=== PATIENT | male | born 1945 | race Caucasian/White ===

== ENCOUNTER 2018-08-29 16:54 | Inpatient (IN) | payer OTHER, MEDICARE ==
[~2018-08-29] VITALS: Ht 177.8 cm; Wt 79.6 kg
--- NOTE | 2018-08-29 17:28 | NUR ---
PT WANTS TO WAIT FOR XRAY UNTIL HE GETS IN A ROOM BECAUSE HE HAS A BANDAGE ON AND ONLY WANTS TO TAKE IT OFF ONCE
[2018-08-29 17:54] LABS: MD NO; MONOCYTES % (AUTO) 11 % (2-9); RED CELL DISTRIBUTION WIDTH 13.9 % (9.4-14.8)
[2018-08-29 18:00] LABS: BASOPHILS # (AUTO) 0.05 x10^3/uL (0-0.1); BASOPHILS % (AUTO) 0 % (0-1); EOSINOPHILS # (AUTO) 0.35 x10^3/uL (0-0.4); EOSINOPHILS % (AUTO) 3 % (1-7); LYMPHOCYTES # (AUTO) 1.83 x10^3/uL (1-3.4); LYMPHOCYTES % (AUTO) 15 % (22-44); MEAN CORPUSCULAR HEMOGLOBIN 31.4 pg (27.5-34.5); MEAN CORPUSCULAR HGB CONC 33.1 g/dL (33.2-36.2); MEAN CORPUSCULAR VOLUME 95.1 fL (81-97); MEAN PLATELET VOLUME 6.9 fL (7.4-10.4); MONOCYTES # (AUTO) 1.33 x10^3/uL (0.2-0.8); NEUTROPHILS # (AUTO) 8.66 x10^3/uL (1.8-6.8); NEUTROPHILS % (AUTO) 71 % (42-75); PLATELET COUNT 349 x10^3/uL (130-400); RED BLOOD COUNT 4.65 x10^6/uL (4.38-5.82)
[2018-08-29 18:06] LABS: ALBUMIN 3.1 g/dL (3.4-5.0); ANION GAP 6 mmol/L (5-15); CALCIUM 9.7 mg/dL (8.5-10.1); CHLORIDE 107 mmol/L (98-107)
[2018-08-29 18:10] LABS: ALANINE AMINOTRANSFERASE 33 U/L (12-78); ALKALINE PHOSPHATASE 74 U/L (45-117); BILIRUBIN,TOTAL 0.4 mg/dL (0.2-1.0); CREATININE 1.26 mg/dL (0.7-1.3); TOTAL PROTEIN 7.6 g/dL (6.4-8.2)
--- NOTE | 2018-08-29 18:33 | NUR ---
PT TO ROOM 4 W/ C/O HAVING INFECTION TO R ANKLE THAT WAS TREATED AT [facility] W/ IV ANTX FOR 5 DAYS AND WAS DC'D W/ PO AUGMENTIN AND FLAGYL AND PT STATES HIS INFECTION IS RESISTANT TO PO ANTX HE WAS TOLD. PT STATES HE WENT HOME ON PO ANTX AND STATES INFECTION IS GETTING WORSE. PT RESTING ON [facility]. NADN. VSS. WARM BLANKET PROVIDED.
--- NOTE | 2018-08-29 18:35 | NUR ---
PT CHART REVIEWED AND PLACED FOR RECHECK.
--- NOTE | 2018-08-29 18:47 | NUR ---
PT REPORT FROM RITA VASQUEZ. THIS RN TO ASSUME CARE OF PT. PT UP FOR RECHECK. AWAITING MD RECHECK.
--- NOTE | 2018-08-29 19:06 | NUR ---
REPORT GIVEN TO JANKI HERNANDEZ RN.
[2018-08-29] MEDS ORDERED: VANCOMYCIN PER PHARMACY IV ONE (19:30)
[2018-08-29] MEDS ORDERED: PHARMACOKINETIC CONSULTATION MC ONE ×2 (19:30→21:00)
[2018-08-29] MEDS ORDERED: VANCOMYCIN 1,800 MG in SODIUM CHLORIDE 0.9% 250 ML IV ONE (19:30)
[2018-08-29] MEDS ORDERED: PIPERACILLIN/TAZO/PMX 3.375GM 50 ML IVPB ONE (19:30)
--- NOTE | 2018-08-29 19:41 | NUR ---
REPORT TO BONIFACIO VASQUEZ FOR ROOM [id number]
[2018-08-29] MEDS: HEPARIN 5,000 UNITS/ML, 1ML SQ SCH (20:30)
[2018-08-29] MEDS ORDERED: LABETALOL 5MG/ML, 20ML IVPush PRN (20:30)
[2018-08-29] MEDS ORDERED: TEMAZEPAM 15 MG CAPSULE PO PRN (20:30)
[2018-08-29] MEDS ORDERED: GABAPENTIN 300 MG CAPSULE PO PRN (20:30)
[2018-08-29] MEDS ORDERED: ONDANSETRON ODT 4 MG PO PRN (20:30)
[2018-08-29] MEDS ORDERED: VANCOMYCIN PER PHARMACY MC PRN (20:30)
[2018-08-29] MEDS ORDERED: DOCUSATE 100 MG CAPSULE PO PRN (20:30)
[2018-08-29] MEDS ORDERED: PHARMACOKINETIC MONITORING MC PRN (21:00)
[2018-08-30 01:12] VITALS: BP 112/72
[2018-08-30] MEDS: ACETAMINOPHEN 325 MG TABLET PO PRN (02:34)
[2018-08-30] MEDS: PIPERACILLIN/TAZO/PMX 3.375GM 50 ML IV SCH ×4 (02:34→23:04)
[2018-08-30] MEDS: HEPARIN 5,000 UNITS/ML, 1ML SQ SCH ×3 (04:30→20:36)
[2018-08-30 04:40] LABS: MEAN CORPUSCULAR HGB CONC 32.7 g/dL (33.2-36.2); MEAN CORPUSCULAR VOLUME 94.6 fL (81-97); MEAN PLATELET VOLUME 6.6 fL (7.4-10.4); PLATELET COUNT 325 x10^3/uL (130-400); RED BLOOD COUNT 4.38 x10^6/uL (4.38-5.82); RED CELL DISTRIBUTION WIDTH 13.9 % (9.4-14.8)
[2018-08-30 04:52] LABS: ANION GAP 9 mmol/L (5-15); CALCIUM 8.7 mg/dL (8.5-10.1); CHLORIDE 107 mmol/L (98-107)
[2018-08-30 04:53] LABS: CREATININE 1.16 mg/dL (0.7-1.3)
[2018-08-30 05:08] LABS: BASOPHILS # (AUTO) 0.07 x10^3/uL (0-0.1); BASOPHILS % (AUTO) 1 % (0-1); EOSINOPHILS % (AUTO) 4 % (1-7); LYMPHOCYTES # (AUTO) 1.56 x10^3/uL (1-3.4); LYMPHOCYTES % (AUTO) 12 % (22-44); MD SCAN; MONOCYTES # (AUTO) 1.46 x10^3/uL (0.2-0.8); MONOCYTES % (AUTO) 11 % (2-9); NEUTROPHILS % (AUTO) 73 % (42-75)
[2018-08-30 07:35] VITALS: BP 120/76
[2018-08-30 08:30] VITALS: BP 101/63
[2018-08-30 13:31] LABS: HCT (SEDRATE) 42.5 % (39.2-51.8)
[2018-08-30 16:06] VITALS: BP 114/73
[2018-08-30] MEDS ORDERED: VANCOMYCIN 1,800 MG in SODIUM CHLORIDE 0.9% 250 ML IV SCH (20:00)
[2018-08-30 20:43] VITALS: BP 124/73
[2018-08-31 02:30] VITALS: BP 130/72
[2018-08-31] MEDS: HEPARIN 5,000 UNITS/ML, 1ML SQ SCH ×3 (04:30→20:03)
[2018-08-31 04:41] LABS: BASOPHILS # (AUTO) 0.04 x10^3/uL (0-0.1); BASOPHILS % (AUTO) 0 % (0-1); EOSINOPHILS # (AUTO) 0.61 x10^3/uL (0-0.4); EOSINOPHILS % (AUTO) 6 % (1-7); LYMPHOCYTES % (AUTO) 15 % (22-44); MD NO; MEAN CORPUSCULAR HEMOGLOBIN 31.1 pg (27.5-34.5); MEAN CORPUSCULAR HGB CONC 32.8 g/dL (33.2-36.2); MEAN CORPUSCULAR VOLUME 94.7 fL (81-97); MEAN PLATELET VOLUME 6.9 fL (7.4-10.4); MONOCYTES # (AUTO) 1.03 x10^3/uL (0.2-0.8); MONOCYTES % (AUTO) 10 % (2-9); NEUTROPHILS # (AUTO) 7.61 x10^3/uL (1.8-6.8); NEUTROPHILS % (AUTO) 70 % (42-75); PLATELET COUNT 327 x10^3/uL (130-400); RED BLOOD COUNT 4.61 x10^6/uL (4.38-5.82); RED CELL DISTRIBUTION WIDTH 14.7 % (9.4-14.8)
[2018-08-31] MEDS: PIPERACILLIN/TAZO/PMX 3.375GM 50 ML IV SCH ×2 (04:46→10:00)
[2018-08-31 04:57] LABS: ANION GAP 10 mmol/L (5-15); CALCIUM 8.9 mg/dL (8.5-10.1); CHLORIDE 108 mmol/L (98-107)
[2018-08-31 04:58] LABS: CREATININE 1.18 mg/dL (0.7-1.3)
[2018-08-31] MEDS: ACETAMINOPHEN 325 MG TABLET PO PRN (05:21)
[2018-08-31 07:28] VITALS: BP 144/78
[2018-08-31 11:33] LABS: HEMOGLOBIN A1C 6.6 % (4.2-6.3)
[2018-08-31 13:44] VITALS: BP 129/72
[2018-08-31 19:34] VITALS: BP 133/81
[2018-08-31] MEDS: TAZOBACTAM IV SCH (20:01)
[2018-08-31] MEDS: PIPERACILLIN IV SCH (20:01)
[2018-08-31] MEDS: [UNRECOGNIZED DRUG - OTHER] IV SCH (20:01)
[2018-09-01] MEDS: PIPERACILLIN IV SCH ×4 (02:14→20:37)
[2018-09-01] MEDS: TAZOBACTAM IV SCH ×4 (02:14→20:37)
[2018-09-01] MEDS: [UNRECOGNIZED DRUG - OTHER] IV SCH ×4 (02:14→20:37)
[2018-09-01 02:35] VITALS: BP 131/78
[2018-09-01] MEDS: HEPARIN 5,000 UNITS/ML, 1ML SQ SCH ×3 (03:46→20:30)
[2018-09-01 07:46] VITALS: BP 109/75
[2018-09-01 10:10] LABS: BASOPHILS # (AUTO) 0.05 x10^3/uL (0-0.1); BASOPHILS % (AUTO) 0 % (0-1); EOSINOPHILS # (AUTO) 0.64 x10^3/uL (0-0.4); EOSINOPHILS % (AUTO) 5 % (1-7); LYMPHOCYTES # (AUTO) 1.75 x10^3/uL (1-3.4); LYMPHOCYTES % (AUTO) 14 % (22-44); MD NO; MEAN CORPUSCULAR HEMOGLOBIN 31.4 pg (27.5-34.5); MEAN CORPUSCULAR VOLUME 94.9 fL (81-97); MEAN PLATELET VOLUME 7.2 fL (7.4-10.4); MONOCYTES # (AUTO) 1.07 x10^3/uL (0.2-0.8); MONOCYTES % (AUTO) 8 % (2-9); NEUTROPHILS # (AUTO) 9.42 x10^3/uL (1.8-6.8); NEUTROPHILS % (AUTO) 73 % (42-75); PLATELET COUNT 351 x10^3/uL (130-400); RED CELL DISTRIBUTION WIDTH 14.3 % (9.4-14.8)
[2018-09-01 10:21] LABS: ANION GAP 9 mmol/L (5-15); CALCIUM 9.3 mg/dL (8.5-10.1); CHLORIDE 107 mmol/L (98-107); CREATININE 1.16 mg/dL (0.7-1.3)
[2018-09-01] MEDS: ACETAMINOPHEN 325 MG TABLET PO PRN (11:50)
[2018-09-01 12:00] VITALS: BP 122/76
[2018-09-01 20:00] VITALS: BP 134/73
[2018-09-02 01:29] VITALS: BP 120/79
[2018-09-02] MEDS: TAZOBACTAM IV SCH ×4 (02:38→20:18)
[2018-09-02] MEDS: PIPERACILLIN IV SCH ×4 (02:38→20:18)
[2018-09-02] MEDS: [UNRECOGNIZED DRUG - OTHER] IV SCH ×4 (02:38→20:18)
[2018-09-02] MEDS: HEPARIN 5,000 UNITS/ML, 1ML SQ SCH ×3 (04:16→20:09)
[2018-09-02 05:41] LABS: BASOPHILS # (AUTO) 0.05 x10^3/uL (0-0.1); BASOPHILS % (AUTO) 0 % (0-1); EOSINOPHILS # (AUTO) 0.54 x10^3/uL (0-0.4); EOSINOPHILS % (AUTO) 5 % (1-7); LYMPHOCYTES # (AUTO) 1.79 x10^3/uL (1-3.4); LYMPHOCYTES % (AUTO) 15 % (22-44); MD NO; MEAN CORPUSCULAR HEMOGLOBIN 31.5 pg (27.5-34.5); MEAN CORPUSCULAR HGB CONC 33.3 g/dL (33.2-36.2); MEAN CORPUSCULAR VOLUME 94.8 fL (81-97); MEAN PLATELET VOLUME 7.1 fL (7.4-10.4); MONOCYTES # (AUTO) 1.22 x10^3/uL (0.2-0.8); MONOCYTES % (AUTO) 10 % (2-9); NEUTROPHILS # (AUTO) 8.45 x10^3/uL (1.8-6.8); NEUTROPHILS % (AUTO) 70 % (42-75); PLATELET COUNT 345 x10^3/uL (130-400); RED BLOOD COUNT 4.84 x10^6/uL (4.38-5.82)
[2018-09-02 05:42] LABS: ANION GAP 9 mmol/L (5-15); CALCIUM 9.2 mg/dL (8.5-10.1); CHLORIDE 109 mmol/L (98-107); CREATININE 1.16 mg/dL (0.7-1.3)
[2018-09-02 07:19] VITALS: BP 123/75
[2018-09-02 14:45] VITALS: BP 120/72
[2018-09-02] MEDS: ACETAMINOPHEN 325 MG TABLET PO PRN (15:00)
[2018-09-02 20:10] VITALS: BP 122/75
[2018-09-03 01:05] VITALS: BP 126/79
[2018-09-03] MEDS: PIPERACILLIN IV SCH ×4 (02:18→20:14)
[2018-09-03] MEDS: TAZOBACTAM IV SCH ×4 (02:18→20:14)
[2018-09-03] MEDS: [UNRECOGNIZED DRUG - OTHER] IV SCH ×4 (02:18→20:14)
[2018-09-03] MEDS: HEPARIN 5,000 UNITS/ML, 1ML SQ SCH ×4 (04:00→20:25)
[2018-09-03 05:53] LABS: BASOPHILS # (AUTO) 0.05 x10^3/uL (0-0.1); BASOPHILS % (AUTO) 0 % (0-1); EOSINOPHILS # (AUTO) 0.55 x10^3/uL (0-0.4); EOSINOPHILS % (AUTO) 5 % (1-7); LYMPHOCYTES # (AUTO) 1.33 x10^3/uL (1-3.4); LYMPHOCYTES % (AUTO) 12 % (22-44); MD NO; MEAN CORPUSCULAR HEMOGLOBIN 31.2 pg (27.5-34.5); MEAN CORPUSCULAR VOLUME 94.5 fL (81-97); MEAN PLATELET VOLUME 7.1 fL (7.4-10.4); MONOCYTES # (AUTO) 1.16 x10^3/uL (0.2-0.8); MONOCYTES % (AUTO) 10 % (2-9); NEUTROPHILS # (AUTO) 8.31 x10^3/uL (1.8-6.8); NEUTROPHILS % (AUTO) 73 % (42-75); PLATELET COUNT 303 x10^3/uL (130-400); RED BLOOD COUNT 4.91 x10^6/uL (4.38-5.82)
[2018-09-03 05:58] LABS: ANION GAP 9 mmol/L (5-15); CALCIUM 8.9 mg/dL (8.5-10.1); CHLORIDE 110 mmol/L (98-107); CREATININE 1.15 mg/dL (0.7-1.3)
[2018-09-03 08:22] VITALS: BP 122/75
[2018-09-03 14:18] VITALS: BP 112/69
[2018-09-03] MEDS: ACETAMINOPHEN 325 MG TABLET PO PRN (15:21)
[2018-09-03 19:46] VITALS: BP 120/76
[2018-09-04] MEDS: MELATONIN 5 MG TABLET PO PRN (00:24)
[2018-09-04 01:49] VITALS: BP 121/71
[2018-09-04] MEDS: TAZOBACTAM IV SCH ×3 (02:32→16:46)
[2018-09-04] MEDS: [UNRECOGNIZED DRUG - OTHER] IV SCH ×3 (02:32→16:46)
[2018-09-04] MEDS: PIPERACILLIN IV SCH ×3 (02:32→16:46)
[2018-09-04] MEDS: HEPARIN 5,000 UNITS/ML, 1ML SQ SCH ×3 (04:30→22:09)
[2018-09-04 05:20] LABS: BASOPHILS # (AUTO) 0.04 x10^3/uL (0-0.1); BASOPHILS % (AUTO) 0 % (0-1); EOSINOPHILS % (AUTO) 5 % (1-7); LYMPHOCYTES # (AUTO) 1.62 x10^3/uL (1-3.4); LYMPHOCYTES % (AUTO) 15 % (22-44); MD NO; MEAN CORPUSCULAR HEMOGLOBIN 31.1 pg (27.5-34.5); MEAN CORPUSCULAR HGB CONC 32.6 g/dL (33.2-36.2); MEAN CORPUSCULAR VOLUME 95.2 fL (81-97); MONOCYTES # (AUTO) 1.27 x10^3/uL (0.2-0.8); MONOCYTES % (AUTO) 12 % (2-9); NEUTROPHILS # (AUTO) 7.48 x10^3/uL (1.8-6.8); NEUTROPHILS % (AUTO) 68 % (42-75); PLATELET COUNT 318 x10^3/uL (130-400); RED BLOOD COUNT 4.73 x10^6/uL (4.38-5.82)
[2018-09-04 05:31] LABS: ALANINE AMINOTRANSFERASE 67 U/L (12-78); ALBUMIN 2.6 g/dL (3.4-5.0); ANION GAP 11 mmol/L (5-15); CALCIUM 8.9 mg/dL (8.5-10.1); CHLORIDE 110 mmol/L (98-107)
[2018-09-04 05:38] LABS: ALKALINE PHOSPHATASE 69 U/L (45-117); BILIRUBIN,TOTAL 0.7 mg/dL (0.2-1.0); CREATININE 1.11 mg/dL (0.7-1.3); TOTAL PROTEIN 7.3 g/dL (6.4-8.2)
[2018-09-04 05:54] LABS: HCT (SEDRATE) 45.1 % (39.2-51.8)
[2018-09-04 06:47] VITALS: BP 120/75
[2018-09-04] MEDS: ACETAMINOPHEN 325 MG TABLET PO PRN ×2 (12:24→16:50)
[2018-09-04 14:50] VITALS: BP 145/83
[2018-09-04 18:35] VITALS: BP 130/78
[2018-09-05] MEDS: [UNRECOGNIZED DRUG - OTHER] IV SCH ×3 (00:38→16:16)
[2018-09-05] MEDS: TAZOBACTAM IV SCH ×3 (00:38→16:16)
[2018-09-05] MEDS: MELATONIN 5 MG TABLET PO PRN (00:38)
[2018-09-05] MEDS: PIPERACILLIN IV SCH ×3 (00:38→16:16)
[2018-09-05 01:16] VITALS: BP 121/79
[2018-09-05] MEDS: HEPARIN 5,000 UNITS/ML, 1ML SQ SCH ×3 (04:30→21:47)
[2018-09-05 05:56] LABS: BASOPHILS # (AUTO) 0.07 x10^3/uL (0-0.1); BASOPHILS % (AUTO) 1 % (0-1); EOSINOPHILS # (AUTO) 0.61 x10^3/uL (0-0.4); EOSINOPHILS % (AUTO) 6 % (1-7); LYMPHOCYTES # (AUTO) 1.52 x10^3/uL (1-3.4); LYMPHOCYTES % (AUTO) 14 % (22-44); MD NO; MEAN CORPUSCULAR HEMOGLOBIN 31.8 pg (27.5-34.5); MEAN CORPUSCULAR HGB CONC 33.8 g/dL (33.2-36.2); MEAN PLATELET VOLUME 7.1 fL (7.4-10.4); MONOCYTES # (AUTO) 1.12 x10^3/uL (0.2-0.8); MONOCYTES % (AUTO) 11 % (2-9); NEUTROPHILS # (AUTO) 7.37 x10^3/uL (1.8-6.8); NEUTROPHILS % (AUTO) 69 % (42-75); PLATELET COUNT 278 x10^3/uL (130-400); RED BLOOD COUNT 4.77 x10^6/uL (4.38-5.82); RED CELL DISTRIBUTION WIDTH 13.9 % (9.4-14.8)
[2018-09-05 06:09] LABS: CHLORIDE 109 mmol/L (98-107)
[2018-09-05 06:13] LABS: ALANINE AMINOTRANSFERASE 88 U/L (12-78); ALBUMIN 2.6 g/dL (3.4-5.0); ALKALINE PHOSPHATASE 67 U/L (45-117); ANION GAP 9 mmol/L (5-15); BILIRUBIN,TOTAL 0.4 mg/dL (0.2-1.0); CALCIUM 8.9 mg/dL (8.5-10.1); CREATININE 1.12 mg/dL (0.7-1.3); TOTAL PROTEIN 7.6 g/dL (6.4-8.2)
[2018-09-05 06:52] VITALS: BP 112/72
[2018-09-05] MEDS ORDERED: POTASSIUM CHLORIDE 20 MEQ TAB.ER.PRT PO ONE (09:30)
[2018-09-05] MEDS: ACETAMINOPHEN 325 MG TABLET PO PRN (12:47)
[2018-09-05 13:58] VITALS: BP 115/76
[2018-09-05 18:35] VITALS: BP 128/66
[2018-09-05 20:43] VITALS: BP 165/77
[2018-09-06] MEDS: PIPERACILLIN IV SCH ×3 (00:24→17:16)
[2018-09-06] MEDS: TAZOBACTAM IV SCH ×3 (00:24→17:16)
[2018-09-06] MEDS: [UNRECOGNIZED DRUG - OTHER] IV SCH ×3 (00:24→17:16)
[2018-09-06 01:32] VITALS: BP 129/74
[2018-09-06] MEDS: MELATONIN 5 MG TABLET PO PRN (02:07)
[2018-09-06] MEDS: HEPARIN 5,000 UNITS/ML, 1ML SQ SCH ×4 (05:30→21:57)
[2018-09-06] MEDS: ACETAMINOPHEN 325 MG TABLET PO PRN (05:51)
[2018-09-06 06:57] LABS: BASOPHILS # (AUTO) 0.05 x10^3/uL (0-0.1); BASOPHILS % (AUTO) 0 % (0-1); EOSINOPHILS # (AUTO) 0.61 x10^3/uL (0-0.4); EOSINOPHILS % (AUTO) 5 % (1-7); LYMPHOCYTES # (AUTO) 1.78 x10^3/uL (1-3.4); LYMPHOCYTES % (AUTO) 15 % (22-44); MD NO; MEAN CORPUSCULAR HEMOGLOBIN 31.6 pg (27.5-34.5); MEAN CORPUSCULAR HGB CONC 33.4 g/dL (33.2-36.2); MEAN CORPUSCULAR VOLUME 94.6 fL (81-97); MEAN PLATELET VOLUME 7.3 fL (7.4-10.4); MONOCYTES # (AUTO) 1.12 x10^3/uL (0.2-0.8); MONOCYTES % (AUTO) 9 % (2-9); NEUTROPHILS # (AUTO) 8.48 x10^3/uL (1.8-6.8); NEUTROPHILS % (AUTO) 70 % (42-75); PLATELET COUNT 294 x10^3/uL (130-400); RED BLOOD COUNT 4.67 x10^6/uL (4.38-5.82); RED CELL DISTRIBUTION WIDTH 14.3 % (9.4-14.8)
[2018-09-06 07:15] VITALS: BP 138/74
[2018-09-06 07:15] LABS: ANION GAP 11 mmol/L (5-15); CALCIUM 8.9 mg/dL (8.5-10.1); CHLORIDE 107 mmol/L (98-107); CREATININE 1.02 mg/dL (0.7-1.3)
[2018-09-06] MEDS ORDERED: POTASSIUM CHLORIDE 40 MEQ in SODIUM CHLORIDE 0.9% 500 ML IV ONE (10:00)
[2018-09-06 14:25] VITALS: BP 131/88
[2018-09-06 19:05] VITALS: BP 124/80
[2018-09-07] MEDS: [UNRECOGNIZED DRUG - OTHER] IV SCH ×3 (00:27→16:38)
[2018-09-07] MEDS: TAZOBACTAM IV SCH ×3 (00:27→16:38)
[2018-09-07] MEDS: PIPERACILLIN IV SCH ×3 (00:27→16:38)
[2018-09-07 01:10] VITALS: BP 131/77
[2018-09-07] MEDS: HEPARIN 5,000 UNITS/ML, 1ML SQ SCH ×3 (06:34→22:00)
[2018-09-07 06:40] VITALS: BP 113/71
[2018-09-07] MEDS ORDERED: POTASSIUM CHLORIDE 40 MEQ in SODIUM CHLORIDE 0.9% 500 ML IV ONE (07:30)
[2018-09-07 07:44] LABS: ANION GAP 9 mmol/L (5-15); BASOPHILS # (AUTO) 0.05 x10^3/uL (0-0.1); BASOPHILS % (AUTO) 0 % (0-1); CALCIUM 8.9 mg/dL (8.5-10.1); CHLORIDE 110 mmol/L (98-107); CREATININE 0.87 mg/dL (0.7-1.3); EOSINOPHILS # (AUTO) 0.57 x10^3/uL (0-0.4); EOSINOPHILS % (AUTO) 5 % (1-7); LYMPHOCYTES # (AUTO) 1.34 x10^3/uL (1-3.4); LYMPHOCYTES % (AUTO) 11 % (22-44); MD NO; MEAN CORPUSCULAR HEMOGLOBIN 31.2 pg (27.5-34.5); MEAN CORPUSCULAR HGB CONC 33.2 g/dL (33.2-36.2); MEAN CORPUSCULAR VOLUME 94.1 fL (81-97); MEAN PLATELET VOLUME 7.3 fL (7.4-10.4); MONOCYTES # (AUTO) 1.02 x10^3/uL (0.2-0.8); MONOCYTES % (AUTO) 9 % (2-9); NEUTROPHILS # (AUTO) 9.03 x10^3/uL (1.8-6.8); NEUTROPHILS % (AUTO) 75 % (42-75); PLATELET COUNT 300 x10^3/uL (130-400); RED BLOOD COUNT 4.73 x10^6/uL (4.38-5.82)
[2018-09-07 12:15] VITALS: BP 114/69
[2018-09-07 16:06] LABS: CLOSTRIDIUM DIFFICILE ANTIGEN NEGATIVE; CLOSTRIDIUM DIFFICILE TOXIN NEGATIVE (Negative)
[2018-09-07 21:16] VITALS: BP 120/70
[2018-09-08] MEDS: PIPERACILLIN IV SCH ×3 (00:14→17:40)
[2018-09-08] MEDS: TAZOBACTAM IV SCH ×3 (00:14→17:40)
[2018-09-08] MEDS: [UNRECOGNIZED DRUG - OTHER] IV SCH ×3 (00:14→17:40)
[2018-09-08 00:48] VITALS: BP 125/81
[2018-09-08] MEDS: HEPARIN 5,000 UNITS/ML, 1ML SQ SCH ×3 (05:40→22:55)
[2018-09-08 06:40] VITALS: BP 131/80
[2018-09-08 07:37] LABS: BASOPHILS # (AUTO) 0.03 x10^3/uL (0-0.1); BASOPHILS % (AUTO) 0 % (0-1); EOSINOPHILS # (AUTO) 0.66 x10^3/uL (0-0.4); EOSINOPHILS % (AUTO) 6 % (1-7); LYMPHOCYTES # (AUTO) 1.14 x10^3/uL (1-3.4); LYMPHOCYTES % (AUTO) 9 % (22-44); MD NO; MEAN CORPUSCULAR HEMOGLOBIN 30.7 pg (27.5-34.5); MEAN CORPUSCULAR HGB CONC 32.6 g/dL (33.2-36.2); MEAN CORPUSCULAR VOLUME 94.2 fL (81-97); MEAN PLATELET VOLUME 7.4 fL (7.4-10.4); MONOCYTES # (AUTO) 1.29 x10^3/uL (0.2-0.8); MONOCYTES % (AUTO) 11 % (2-9); NEUTROPHILS # (AUTO) 8.94 x10^3/uL (1.8-6.8); NEUTROPHILS % (AUTO) 74 % (42-75); PLATELET COUNT 283 x10^3/uL (130-400); RED BLOOD COUNT 4.93 x10^6/uL (4.38-5.82); RED CELL DISTRIBUTION WIDTH 14.2 % (9.4-14.8)
[2018-09-08 07:47] LABS: ANION GAP 10 mmol/L (5-15); CALCIUM 9.4 mg/dL (8.5-10.1); CHLORIDE 109 mmol/L (98-107)
[2018-09-08 07:48] LABS: CREATININE 0.93 mg/dL (0.7-1.3)
[2018-09-08] MEDS: ACETAMINOPHEN 325 MG TABLET PO PRN (09:03)
[2018-09-08 12:00] VITALS: BP 123/80
[2018-09-08] MEDS ORDERED: HYDROcodone/APAP 5/325 TABLET PO ONE (15:30)
[2018-09-08] MEDS: LACTOBACILLUS CHEW TABLET PO SCH ×2 (17:40→22:55)
[2018-09-08 19:09] VITALS: BP 115/74
[2018-09-09 00:28] VITALS: BP 115/72
[2018-09-09] MEDS: PIPERACILLIN IV SCH ×3 (00:50→17:15)
[2018-09-09] MEDS: TAZOBACTAM IV SCH ×3 (00:50→17:15)
[2018-09-09] MEDS: [UNRECOGNIZED DRUG - OTHER] IV SCH ×3 (00:50→17:15)
[2018-09-09 05:42] LABS: BASOPHILS # (AUTO) 0.06 x10^3/uL (0-0.1); BASOPHILS % (AUTO) 1 % (0-1); EOSINOPHILS # (AUTO) 0.79 x10^3/uL (0-0.4); EOSINOPHILS % (AUTO) 7 % (1-7); LYMPHOCYTES # (AUTO) 1.34 x10^3/uL (1-3.4); LYMPHOCYTES % (AUTO) 12 % (22-44); MD NO; MEAN CORPUSCULAR HEMOGLOBIN 30.9 pg (27.5-34.5); MEAN CORPUSCULAR VOLUME 93.5 fL (81-97); MEAN PLATELET VOLUME 7.9 fL (7.4-10.4); MONOCYTES # (AUTO) 1.01 x10^3/uL (0.2-0.8); MONOCYTES % (AUTO) 9 % (2-9); NEUTROPHILS # (AUTO) 7.76 x10^3/uL (1.8-6.8); NEUTROPHILS % (AUTO) 71 % (42-75); PLATELET COUNT 268 x10^3/uL (130-400); RED BLOOD COUNT 4.79 x10^6/uL (4.38-5.82); RED CELL DISTRIBUTION WIDTH 14.4 % (9.4-14.8)
[2018-09-09 05:52] LABS: CHLORIDE 110 mmol/L (98-107)
[2018-09-09] MEDS: HEPARIN 5,000 UNITS/ML, 1ML SQ SCH ×3 (05:56→21:47)
[2018-09-09 06:01] LABS: ANION GAP 9 mmol/L (5-15); CREATININE 0.99 mg/dL (0.7-1.3)
[2018-09-09 06:34] VITALS: BP 115/71
[2018-09-09] MEDS: LACTOBACILLUS CHEW TABLET PO SCH ×3 (08:17→21:46)
[2018-09-09 10:40] LABS: ANION GAP 9 mmol/L (5-15); CALCIUM 8.7 mg/dL (8.5-10.1); CHLORIDE 110 mmol/L (98-107); CREATININE 0.94 mg/dL (0.7-1.3)
[2018-09-09 13:35] VITALS: BP 112/70
[2018-09-09 19:39] VITALS: BP 124/61
[2018-09-09] MEDS: ACETAMINOPHEN 325 MG TABLET PO PRN (19:43)
[2018-09-10 01:35] VITALS: BP 111/76
[2018-09-10] MEDS: TAZOBACTAM IV SCH ×3 (01:45→18:02)
[2018-09-10] MEDS: PIPERACILLIN IV SCH ×3 (01:45→18:02)
[2018-09-10] MEDS: [UNRECOGNIZED DRUG - OTHER] IV SCH ×3 (01:45→18:02)
[2018-09-10 05:05] LABS: BASOPHILS # (AUTO) 0.06 x10^3/uL (0-0.1); BASOPHILS % (AUTO) 1 % (0-1); EOSINOPHILS # (AUTO) 0.91 x10^3/uL (0-0.4); EOSINOPHILS % (AUTO) 9 % (1-7); LYMPHOCYTES # (AUTO) 1.31 x10^3/uL (1-3.4); LYMPHOCYTES % (AUTO) 13 % (22-44); MD NO; MEAN CORPUSCULAR HEMOGLOBIN 30.8 pg (27.5-34.5); MEAN CORPUSCULAR HGB CONC 32.8 g/dL (33.2-36.2); MEAN CORPUSCULAR VOLUME 93.9 fL (81-97); MEAN PLATELET VOLUME 7.8 fL (7.4-10.4); MONOCYTES % (AUTO) 10 % (2-9); NEUTROPHILS # (AUTO) 7.12 x10^3/uL (1.8-6.8); NEUTROPHILS % (AUTO) 69 % (42-75); PLATELET COUNT 265 x10^3/uL (130-400); RED BLOOD COUNT 4.81 x10^6/uL (4.38-5.82); RED CELL DISTRIBUTION WIDTH 14.3 % (9.4-14.8)
[2018-09-10] MEDS: HEPARIN 5,000 UNITS/ML, 1ML SQ SCH ×3 (06:00→21:14)
[2018-09-10 07:58] VITALS: BP 119/74
[2018-09-10] MEDS: LACTOBACILLUS CHEW TABLET PO SCH ×3 (10:18→21:19)
[2018-09-10 15:01] VITALS: BP 111/70
[2018-09-10 18:40] VITALS: BP 113/70
[2018-09-11] MEDS: PIPERACILLIN IV SCH ×3 (01:52→17:27)
[2018-09-11] MEDS: TAZOBACTAM IV SCH ×3 (01:52→17:27)
[2018-09-11] MEDS: [UNRECOGNIZED DRUG - OTHER] IV SCH ×3 (01:52→17:27)
[2018-09-11 02:08] VITALS: BP 110/66
[2018-09-11] MEDS: HEPARIN 5,000 UNITS/ML, 1ML SQ SCH ×3 (05:17→22:00)
[2018-09-11 05:54] LABS: BASOPHILS # (AUTO) 0.08 x10^3/uL (0-0.1); BASOPHILS % (AUTO) 1 % (0-1); EOSINOPHILS # (AUTO) 0.58 x10^3/uL (0-0.4); EOSINOPHILS % (AUTO) 6 % (1-7); LYMPHOCYTES # (AUTO) 1.25 x10^3/uL (1-3.4); LYMPHOCYTES % (AUTO) 12 % (22-44); MD NO; MEAN CORPUSCULAR HEMOGLOBIN 31.1 pg (27.5-34.5); MEAN CORPUSCULAR VOLUME 94.2 fL (81-97); MONOCYTES # (AUTO) 1.09 x10^3/uL (0.2-0.8); MONOCYTES % (AUTO) 10 % (2-9); NEUTROPHILS % (AUTO) 72 % (42-75); PLATELET COUNT 255 x10^3/uL (130-400); RED BLOOD COUNT 4.89 x10^6/uL (4.38-5.82); RED CELL DISTRIBUTION WIDTH 14.4 % (9.4-14.8)
[2018-09-11 06:01] LABS: ALBUMIN 2.5 g/dL (3.4-5.0); ANION GAP 10 mmol/L (5-15); CALCIUM 9.1 mg/dL (8.5-10.1); CHLORIDE 110 mmol/L (98-107)
[2018-09-11 06:11] LABS: ALANINE AMINOTRANSFERASE 108 U/L (12-78); ALKALINE PHOSPHATASE 64 U/L (45-117); BILIRUBIN,TOTAL 0.4 mg/dL (0.2-1.0); CREATININE 1.01 mg/dL (0.7-1.3); TOTAL PROTEIN 7.5 g/dL (6.4-8.2)
[2018-09-11 08:00] VITALS: BP 118/75
[2018-09-11] MEDS: LACTOBACILLUS CHEW TABLET PO SCH ×3 (09:23→20:56)
[2018-09-11] MEDS: ACETAMINOPHEN 325 MG TABLET PO PRN (11:18)
[2018-09-11] MEDS ORDERED: GABA300C10 PO (15:42)
[2018-09-11] MEDS ORDERED: ACET325T14 PO (15:42)
[2018-09-11] MEDS ORDERED: DOCU-131 PO (15:42)
[2018-09-11] MEDS ORDERED: ACID1TAB7 PO (15:42)
[2018-09-11] MEDS ORDERED: ONDA4TAB13 PO (15:42)
[2018-09-11] MEDS ORDERED: HEPA50002 SQ (15:42)
[2018-09-11] MEDS ORDERED: MELA5TAB19 PO (15:42)
[2018-09-11] MEDS ORDERED: PIPE4.5V3 IV (15:42)
[2018-09-11 16:07] VITALS: BP 118/75
[2018-09-11 19:23] VITALS: BP 110/68
[2018-09-12 01:01] VITALS: BP 112/72
[2018-09-12] MEDS: TAZOBACTAM IV SCH ×3 (01:36→17:13)
[2018-09-12] MEDS: PIPERACILLIN IV SCH ×3 (01:36→17:13)
[2018-09-12] MEDS: [UNRECOGNIZED DRUG - OTHER] IV SCH ×3 (01:36→17:13)
[2018-09-12] MEDS: HEPARIN 5,000 UNITS/ML, 1ML SQ SCH ×3 (06:00→21:47)
[2018-09-12 06:33] VITALS: BP 126/78
[2018-09-12] MEDS: LACTOBACILLUS CHEW TABLET PO SCH ×3 (09:20→21:01)
[2018-09-12 12:28] VITALS: BP 136/74
[2018-09-12 20:00] VITALS: BP 113/76
[2018-09-13 00:42] VITALS: BP 110/71
[2018-09-13] MEDS: TAZOBACTAM IV SCH ×2 (01:27→09:54)
[2018-09-13] MEDS: [UNRECOGNIZED DRUG - OTHER] IV SCH ×2 (01:27→09:54)
[2018-09-13] MEDS: PIPERACILLIN IV SCH ×2 (01:27→09:54)
[2018-09-13 05:23] LABS: BASOPHILS # (AUTO) 0.08 x10^3/uL (0-0.1); BASOPHILS % (AUTO) 1 % (0-1); EOSINOPHILS # (AUTO) 0.68 x10^3/uL (0-0.4); EOSINOPHILS % (AUTO) 7 % (1-7); LYMPHOCYTES % (AUTO) 14 % (22-44); MD NO; MEAN CORPUSCULAR HEMOGLOBIN 31.3 pg (27.5-34.5); MEAN CORPUSCULAR VOLUME 91.9 fL (81-97); MEAN PLATELET VOLUME 7.7 fL (7.4-10.4); MONOCYTES # (AUTO) 1.03 x10^3/uL (0.2-0.8); MONOCYTES % (AUTO) 11 % (2-9); NEUTROPHILS # (AUTO) 6.08 x10^3/uL (1.8-6.8); NEUTROPHILS % (AUTO) 66 % (42-75); PLATELET COUNT 218 x10^3/uL (130-400); RED BLOOD COUNT 4.72 x10^6/uL (4.38-5.82); RED CELL DISTRIBUTION WIDTH 14.7 % (9.4-14.8)
[2018-09-13 05:35] LABS: CHLORIDE 109 mmol/L (98-107)
[2018-09-13 05:40] LABS: ANION GAP 8 mmol/L (5-15); CALCIUM 8.8 mg/dL (8.5-10.1); CREATININE 0.99 mg/dL (0.7-1.3)
[2018-09-13] MEDS: HEPARIN 5,000 UNITS/ML, 1ML SQ SCH ×2 (05:41→14:00)
[2018-09-13 07:07] VITALS: BP 110/68
[2018-09-13] MEDS: LACTOBACILLUS CHEW TABLET PO SCH ×2 (09:54→16:37)
[2018-09-13 13:46] VITALS: BP 110/70
[2018-09-13] MEDS ORDERED: POTASSIUM CHLORIDE 40 MEQ in SODIUM CHLORIDE 0.9% 500 ML IV ONE (14:00)
[2018-09-13] MEDS ORDERED: POTASSIUM CHLORIDE 20 MEQ TAB.ER.PRT PO ONE (16:30)
[2018-09-13] MEDS: ACETAMINOPHEN 325 MG TABLET PO PRN (16:33)
== END 2018-09-13 17:00 | DRG 603 ==
LOC: ED 19:05 → EDIP 19:12 → ED 19:30 → 3NW 20:20 → 3NE 09-01 05:05
PROVIDERS: ADMIT Internal Medicine; ATTEND Internal Medicine
PROC: 02HV33Z Insertion of Infusion Device into Superior Vena Cava, Percutaneous Approach (ICD-10-PCS; principal; 2018-09-13)
PROC: B5181ZA Fluoroscopy of Superior Vena Cava using Low Osmolar Contrast, Guidance (ICD-10-PCS; 2018-09-13)
PROC: B548ZZA Ultrasonography of Superior Vena Cava, Guidance (ICD-10-PCS; 2018-09-13)
DX: L03.115 Cellulitis of right lower limb (principal); L97.818 Non-pressure chronic ulcer of other part of right lower leg with other specified severity; E44.1 Mild protein-calorie malnutrition; N19 Unspecified kidney failure; I87.2 Venous insufficiency (chronic) (peripheral); B96.5 Pseudomonas (aeruginosa) (mallei) (pseudomallei) as the cause of diseases classified elsewhere; E11.9 Type 2 diabetes mellitus without complications; G89.29 Other chronic pain; H91.90 Unspecified hearing loss, unspecified ear; I10 Essential (primary) hypertension; N40.0 Benign prostatic hyperplasia without lower urinary tract symptoms; L27.0 Generalized skin eruption due to drugs and medicaments taken internally; Z16.23 Resistance to quinolones and fluoroquinolones; Z83.1 Family history of other infectious and parasitic diseases; Z87.891 Personal history of nicotine dependence; T37.0X5A Adverse effect of sulfonamides, initial encounter; Y92.89 Other specified places as the place of occurrence of the external cause
CPT/HCPCS: 36415; 36573; 80048; 80053; 83036; 83605; 83735; 85025; 85651; 86140; 86480; 87040; 87070; 87077; 87106; 87186; 87205; 87324; 93005; 96365; 96375; G0378; J1644; J2543; J3370; J3480; C1751; J7040; J7050